=== PATIENT | male | born 1995 | race African-American/Black ===

== ENCOUNTER 2017-02-09 15:39 | Emergency (ER) | payer SELFPAY ==
[2017-02-09] MEDS ORDERED: Sodium Chloride 0.9% 1,000 ML IV ONE (16:28)
--- NOTE | 2017-02-09 16:31 | EDM.PDOC ---
ED HPI GENERAL MEDICAL PROBLEM - General Chief Complaint: Head Injury Stated Complaint: FELL DOWN STAIRS Time Seen by Provider: 02/09/17 16:29 Source of Information: Reports: Patient History Limitations: Reports: No Limitations - History of Present Illness INITIAL COMMENTS - FREE TEXT/NARRATIVE: History of present illness: [22-year-old male comes in complaining of pain to head chest and foot status post mechanical trip and fall down a flight of stairs. Is unable to say whether he was knocked unconscious he said he does feel like he was stunned and days for a period of seconds as he couldn't wrap his mind around how he] Review of systems: As per history of present illness and below otherwise all systems reviewed and negative. Past medical history: As per history of present illness and as reviewed below otherwise noncontributory. Surgical history: As per history of present illness and as reviewed below otherwise noncontributory. Social history: No reported history of drug or alcohol abuse. Family history: As per history of present illness and as reviewed below otherwise noncontributory. Physical exam: HEENT: Left side of head reddened with macerated area to left ear from contusion , pupils reactive, negative for conjunctival pallor or scleral icterus, mucous membranes moist, throat clear, neck supple, nontender, trachea midline. Lungs: Clear to auscultation, breath sounds equal bilaterally, chest tender to the left along the rib line secondary to lack to trauma. Heart: S1S2, regular, negative for clicks, rubs, or JVD. Abdomen: Soft, nondistended, nontender. Negative for masses or hepatosplenomegaly. Negative for costovertebral tenderness. Pelvis: Stable nontender. Genitourinary: Deferred. Rectal: Deferred. Extremities: Left foot with a area of swelling and erythema to the outer lateral aspect it is quite painful, negative for cords or calf pain. Neurovascular unremarkable. Neuro: Awake, alert, oriented. Cranial nerves II through XII unremarkable. Cerebellum unremarkable. Motor and sensory unremarkable throughout. Exam nonfocal. Patient is completely asymptomatic for his intracranial bleed and the CT indicated they were quite small and unable to measure and unable to determine if they were SA, SD or SP Will transfer patient to [place] [facility] for further evaluation should patient decide to involve or declare himself. Diagnostics: [CT of the head without contrast, chest x-ray two-view specifically reviewing left side, and x-ray of left foot, CBC, CMP] Therapeutics: [IV fluid,toradol] Impression: [#1 contusion to ribs #2 avulsion fracture on left side of foot #3 Two small foci right parietal brain of intracranial hemorrhaging Plan: [transfer to [place]] Definitive disposition and diagnosis as appropriate pending reevaluation and review of above. Left Feet Pain Score (Numeric/FACES): 9 - Related Data Allergies Allergy/AdvReac Type Severity Reaction Status Date / Time No Known Allergies Allergy Verified 02/09/17 15:53 Home Meds: Home Meds . [No Known Home Meds] 02/09/17 [History] Past Medical History - Past Health History Medical/Surgical History: Denies Medical/Surgical History - Past Surgical History HEENT Surgical History: Reports: Other (See Below) Other HEENT Surgeries/Procedures: polyps removed from nose Social & Family History - Tobacco Use Smoking Status *Q: Current Some Day Smoker Years of Tobacco use: 2 Packs/Tins Daily: 0.1 - Caffeine Use Caffeine Use: Reports: Soda - Recreational Drug Use Recreational Drug Use: Yes Drug Use in Last 12 Months: Yes Recreational Drug Type: Reports: Marijuana/Hashish Recreational Drug Use Frequency: Not Used In Over 1 Month ED ROS GENERAL - Review of Systems Review Of Systems: See Below (See history of present illness) ED EXAM, HEAD INJURY - Physical Exam Exam: See Below (See history of present illness) Course - Vital Signs Last Recorded V/S: Last Vital Signs Temp Pulse 62 02/09/17 15:48 Resp 12 02/09/17 15:48 BP 143/64 H 02/09/17 15:48 Pulse Ox 100 02/09/17 15:48 - Orders/Labs/Meds Orders: Active Orders 24 hr Category Date Time Status Chest 2V [CR] Stat Exams 02/09/17 16:28 Taken Foot 2V Lt [CR] Stat Exams 02/09/17 16:28 Taken Head wo Cont [CT] Stat Exams 02/09/17 16:28 Taken Labs: Laboratory Tests 02/09/17 02/09/17 Range/Units 16:44 16:44 WBC 14.54 H (4.0-11.0) K/uL RBC 5.45 (4.50-5.90) M/uL Hgb 14.9 (13.0-17.0) g/dL Hct 45.7 (38.0-50.0) % MCV 83.9 (80.0-98.0) fL MCH 27.3 (27.0-32.0) pg MCHC 32.6 (31.0-37.0) g/dL RDW Std Deviation 45.4 (28.0-62.0) fl RDW Coeff of Елена 15 (11.0-15.0) % Plt Count 164 (150-400) K/uL MPV 10.50 (7.40-12.00) fL Neut % (Auto) 85.3 H (48.0-80.0) % Lymph % (Auto) 7.6 L (16.0-40.0) % [place] % (Auto) 6.1 (0.0-15.0) % Eos % (Auto) 0.8 (0.0-7.0) % Baso % (Auto) 0.2 (0.0-1.5) % Neut # (Auto) 12.4 H (1.4-5.7) K/uL Lymph # (Auto) 1.1 (0.6-2.4) K/uL [place] # (Auto) 0.9 H (0.0-0.8) K/uL Eos # (Auto) 0.1 (0.0-0.7) K/uL Baso # (Auto) 0.0 (0.0-0.1) K/uL Nucleated RBC % 0.0 /100WBC Nucleated RBCs # 0 K/uL Sodium 142 (136-146) mmol/L Potassium 3.3 L (3.5-5.1) mmol/L Chloride 107 (98-110) mmol/L Carbon Dioxide 25 (21-31) mmol/L BUN 12 (6.0-23.0) mg/dL Creatinine 1.2 (0.6-1.5) mg/dL Est Cr Clr Drug Dosing 88.20 mL/min Estimated GFR (MDRD) > 60.0 ml/min Glucose 135 H (60-110) mg/dL Calcium 9.6 (8.8-10.8) mg/dL Total Bilirubin 0.6 (0.1-1.5) mg/dL AST 25 (5-40) IU/L ALT 16 (8-54) IU/L Alkaline Phosphatase 70 (40-150) Total Protein 7.6 (6.0-8.0) g/dL Albumin 4.4 (3.5-5.0) g/dL Globulin 3.2 (2.0-3.5) g/dL Albumin/Globulin Ratio 1.4 (1.3-2.8) Meds: Medications Discontinued Medications Generic Name Dose Route Start Last Admin Trade Name Wendi PRN Reason Stop Dose Admin Sodium Chloride 1,000 mls @ 999 mls/hr 02/09/17 16:28 02/09/17 16:47 Normal Saline IV 02/09/17 17:28 999 mls/hr STAT ONE Administration Ketorolac Tromethamine 30 mg 02/09/17 17:39 02/09/17 17:43 Toradol IVPUSH 02/09/17 17:40 30 mg ONETIME ONE Administration Departure - Departure Time of Disposition: 18:23 Disposition: DC/Tfer to Acute Hospital 02 Condition: Good Clinical Impression: Intracranial hemorrhage - Discharge Information Referrals: PCP,None [Primary Care Provider] - Forms: ED Department Discharge - My Orders Last 24 Hours: My Active Orders 02/09/17 16:28 Chest 2V [CR] Stat Foot 2V Lt [CR] Stat Head wo Cont [CT] Stat - Assessment/Plan Last 24 Hours: My Active Orders 02/09/17 16:28 Chest 2V [CR] Stat Foot 2V Lt [CR] Stat Head wo Cont [CT] Stat
[2017-02-09 17:18] LABS: CHLORIDE,CL 107 mmol/L (98-110); SODIUM,NA 142 mmol/L (136-146)
[2017-02-09] MEDS ORDERED: Ketorolac 30 MG/ML SDV IVPUSH ONE (17:39)
[2017-02-09 18:20] VITALS: BP 130/46
--- NOTE | 2017-02-11 14:58 | CR ---
EXAM DATE: 02/09/17 PATIENT'S AGE: 22 Patient: ROXANNA BEAM Facility: [place], [place] Site . Site : 1995 Study: XRay Chest [id number]/9/2017 5:27:34 PM Ordering Physician: Doctor Seymour Final Report: HISTORY: Chest pain and [id number]. Left-sided rib pain. Findings: Two views of the chest or provided. The lungs are normally expanded and clear. No pleural effusion or pneumothorax is seen. Cardiac silhouette size is within normal limits. No rib fracture is noted. Impression: Clear lungs. Dictated by Israel Jeffries MD @ Feb 09 2017 5:36PM (Electronic Signature) Report Signed by Proxy. FRANKI
--- NOTE | 2017-02-11 14:59 | CR ---
EXAM DATE: 02/09/17 PATIENT'S AGE: 22 Patient: ROXANNA BEAM Facility: [place], [place] Site . Site : 1995 Study: XRay Extremity Left Foot [id number]/9/2017 5:28:31 PM Ordering Physician: Doctor Seymour Final Report: HISTORY: Lateral pain and swelling after falling injury. Findings: Two views of the left foot are provided. There is a small area of bone or mineralized density lateral to the cuboid bone probably representing an os peroneum. This could potentially represent a small chip or avulsion type fracture if there is point tenderness in this region. Otherwise there is no evidence for fracture or dislocation elsewhere. Dictated by Israel Jeffries MD @ Feb 09 2017 5:39PM (Electronic Signature) Report Signed by Proxy. FRANKI
--- NOTE | 2017-02-11 15:00 | CT ---
EXAM DATE: 02/09/17 PATIENT'S AGE: 22 Patient: ROXANNA FLORES Facility: [place], [place] Site . Site : 1995 Study: CT Head [id number]/9/2017 5:35:07 PM Ordering Physician: Doctor Seymour Final Report: INDICATION: Fell. Hit head. Scratch on top of left ear. History of nasal polyps removed for 5 years ago. Technique: CT head without IV contrast. Findings: Prominent fluid in soft tissue opacity involving the frontal and ethmoidal sinuses with some involvement of the maxillary sinuses consistent with prominent sinusitis. Increased soft tissue density in the nasal passage which could be related to the known polyps. Increased density throughout the ethmoidal sinuses likely related to hemorrhage or less likely dense mucus. Postsurgical changes in the nasal passage partially visualized. Two small foci of hyperdensity in the right lower frontal parietal/temporal region on images 20-22 are suspicious for small areas of intracranial hemorrhage. It is difficult to determine if these are parenchymal, subdural or subarachnoid. One could consider short-term followup CT to reassess if these remain stable. Findings called immediately to referring physician at 6 p.m. on 02/09/2017. Remainder negative. Impression: 1. Two small foci of hyperdensity in the right inferior cerebral hemisphere laterally consistent with acute sites of hemorrhage. Cannot determine if these are parenchymal, subarachnoid, or subdural. Suggest short-term CT to reassess 2. Very prominent sinus and nasal past disease as described above. Suggest follow up CT sinuses to further evaluate. Please note that all CT scans at this facility use dose modulation, iterative reconstruction, and/or weight-based dosing when appropriate to reduce radiation dose to as low as reasonably achievable. Dictated by Trevor Knowles MD @ Feb 09 2017 6:02PM (Electronic Signature) Report Signed by Proxy. FRANKI
== END 2017-02-09 19:10 ==
LOC: MW.ED 15:39
DX: S06.340A Traumatic hemorrhage of right cerebrum without loss of consciousness, initial encounter (principal); S92.212A Displaced fracture of cuboid bone of left foot, initial encounter for closed fracture; S20.212A Contusion of left front wall of thorax, initial encounter; F17.210 Nicotine dependence, cigarettes, uncomplicated; W10.9XXA Fall (on) (from) unspecified stairs and steps, initial encounter
CPT/HCPCS: 36415; 70450; 71020; 73620; 80053; 85025; 96361; 96374; 99285; J1885; J7040; 99283

== ENCOUNTER 2022-11-15 06:50 | Emergency (ER) | payer BC, MEDICAID ==
[2022-11-15] MEDS ORDERED: Diphtheria,Pertussis(Acell),Tetanus Vaccine 0.5 ML Syringe IM ONE (07:30)
[2022-11-15] MEDS ORDERED: Lidocaine 1% 5 ML VIAL INJECT ONE (07:30)
[2022-11-15 08:33] VITALS: BP 117/46; PULSE 60
== END 2022-11-15 08:31 | disposition home or self-care (01) ==
LOC: MW.ED 06:50
DX: S61.210A Laceration without foreign body of right index finger without damage to nail, initial encounter (principal); Z23 Encounter for immunization; W26.0XXA Contact with knife, initial encounter
CPT/HCPCS: 12001; 90471; 90715; 99282-25; 99283; J3490